=== PATIENT | female | born 1960 | race Caucasian/White ===

== ENCOUNTER 2022-04-10 15:12 | Emergency (ER) | payer SELFPAY ==
[2022-04-10 15:13] VITALS: BP 136/99; PULSE 91; RESP 16; TEMP 35.9; O2SAT 97; BMI 20.7
--- NOTE | 2022-04-10 15:59 | VDLE_ITS ---
Reason For Study: pain RIGHT GSV is normal. CFV is compressible, spontaneous, phasic, competent and demonstrates normal augmentation. FV is compressible, spontaneous, phasic, competent and demonstrates normal augmentation. POP V is compressible, spontaneous, phasic, competent and demonstrates normal augmentation. T/P Trunk is compressible. PTV is compressible. RT PerV is compressible. Procedure This is a venous duplex using B-mode, color flow and spectral Doppler. Exam performed portable in ED. The exam was abbreviated due to the COVID 19 protocol. The exam was diagnostic. A preliminary report was called and/or faxed to Dr. Anderson. VL/Venous Duplex US, Unilateral Interpretation Summary Deep veins of the right lower extremity are patent and compressible segmentally . There is no evidence of right lower extremity deep vein thrombosis. The right great sapheno us vein appears patent and compressible segmentally. Ordering Physician: Mariama Anderson Performed By: Hany Nolan RVT
--- NOTE | 2022-04-10 16:00 | EDS_ITS ---
HPI History of Present Illness Chief Complaint: Lower Extremity Injury Detail of Chief Complaint: Right leg pain and medication refill Informant: patient Onset/Context/Timing Onset: Days (5 days) Context: Sudden Onset Current Severity: Mild Maximum Severity: Moderate Narrative Narrative: Patient presents secondary to right leg pain. On Saturday, 4 days ago, patient states she was out in her yard and stepped in a large hole. She twisted awkwardly and had sudden hip pain. 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 She is able to ambulate. She states earlier today she had a couple brief episodes of sharp chest pain and was concerned about a possible blood clot. Patient also is requesting medication refill for her thyroid and blood pressure medication. She states she went to the [facility] and [place] most recently but does not have a primary care physician to follow-up with and get her refills. [facility] Medical History (Updated 04/10/22 @ 16:[address] Mariama Anderson MD) Hx of gastroesophageal reflux (GERD) Hypertension Hypothyroidism Home Medications albuterol sulfate 90 mcg/actuation aerosol inhaler (ProAir HFA) 2 puff inhalation Q6H PRN PRN Shortness Of Breath 06/04/13 [History Last Taken Unknown] amlodipine 5 mg tablet 5 mg PO DAILY 06/04/13 [History Last Taken Unknown] guaifenesin 600 mg tablet, extended release 12 hr (Mucus Relief ER) 600 mg PO BID 06/04/13 [History Last Taken Unknown] omeprazole 20 mg capsule,delayed release 20 mg PO DAILY 06/04/13 [History Last Taken Unknown] calcitriol 0.25 mcg capsule 0.25 mcg PO DAILY ##20 06/11/13 [Rx Last Taken Unknown] calcium carbonate 200 mg calcium (500 mg) chewable tablet 2,000 mg PO DAILY@0800 ##100 06/11/13 [Rx Last Taken Unknown] ibuprofen 600 mg tablet 600 mg PO Q8H PRN PRN Pain ##30 06/11/13 [Rx Last Taken Unknown] levothyroxine 88 mcg tablet 88 mcg PO DAILY ##90 06/11/13 [Rx Last Taken Unknown] levothyroxine 100 mcg tablet (Synthroid) 100 mcg PO DAILY #30 tabs 04/10/22 [Rx Last Taken Unknown] lisinopril 5 mg tablet 5 mg PO DAILY #30 tabs 04/10/22 [Rx Last Taken Unknown] Allergy/AdvReac Type Severity Reaction Status Date / Time latex Allergy Rash Verified 04/10/22 15:17 acetaminophen [From Percocet] AdvReac Nausea/Vom/ Verified 04/10/22 15:17 Diarrhea hydrocodone bitartrate AdvReac Nausea/Vom/ Verified 04/10/22 15:17 [From Vicodin] Diarrhea methylphenidate HCl AdvReac Rash Verified 04/10/22 15:17 [From Ritalin] oxycodone HCl [From Percocet] AdvReac Nausea/Vom/ Verified 04/10/22 15:17 Diarrhea Surgical History (Updated 04/10/22 @ 16:04 by Slime Gonzalez) History of thyroid surgery Social History Smoking Status: Current every day smoker tobacco type: cigarettes ROS ROS ED Constitutional Constitutional ED: Denies chills or fever(s) Eyes Eyes: Denies change in vision or discharge from eye(s) ENT ENT ED: Denies discharge from eye(s), rhinorrhea or sore throat Cardiovascular Cardiovascular: Reports chest pain; Denies palpitations Respiratory/Chest Respiratory/Chest: Denies cough or dyspnea Gastrointestinal Gastrointestinal: Denies abdominal pain, diarrhea, nausea or vomiting Genitourinary Genitourinary ED: Denies dysuria Musculoskeletal Musculoskeletal: Reports back pain and extremity pain Integumentary Denies Abrasions or rash Neurologic Neurologic: Denies headache(s) or weakness Psychiatric Psychiatric: Denies anxiety or depression Allergic/Immunologic Allergic/Immunologic ED: Denies lip swelling or urticaria EXAM Physical Exam Const Vital Signs: 04/10/22 15:13 Temperature 96.7 F L Temperature Source Temporal Pulse Rate 91 Respiratory Rate 16 Blood Pressure 136/99 H Blood Pressure Mean 111 Pulse Ox 97 Oxygen Delivery Method Room Air Positive well nourished and well developed General Appearance ED: well developed HEENT Reports normocephalic and head/scalp atraumatic Eyes PERRL and EOMs intact bilaterally Neck supple Chest Wall inspection of chest normal and palpation of chest normal Resp normal respiratory effort and clear to auscultation bilaterally Cardio regular rate and regular rhythm GI normal to inspection, nondistended, normoactive bowel sounds Palpation: soft Extremity Extremity Narrative: Superficial scabbed wound over the anterior right anderson. No surrounding erythema. No calf tenderness or edema. Strong distal pulses. Full range of motion at all joints. Neuro oriented x3 and no sensory deficits noted Sensorium / Orientation: alert Motor Exam: strength 5/5 throughout Psych mental status grossly normal MDM MDM MDM Narrative Medical decision making narrative: X-rays of the pelvis, right femur, right tib-fib are ordered. Venous ultrasound of the right leg obtained. Treatment and Re-Evaluation Narrative: Venous ultrasound of the right lower extremity reveals no evidence of DVT. Patient is refusing her x-rays stating that she knows nothing is broken. She will be given prescription for levothyroxine and lisinopril. She is referred to Dr. Altamirano, next doc on no doc list for follow-up. Discharge Plan Triage Chief Complaint: Lower Extremity Injury ED Provider: Mariama Anderson Dx/Rx/DC Orders Clinical Impression: Contusion of leg, right, Medication refill Instructions: ED Contusion, Lower Extremity Prescriptions: New lisinopril 5 mg tablet 5 mg PO DAILY Qty: 30 0RF levothyroxine [Synthroid] 100 mcg tablet 100 mcg PO DAILY Qty: 30 0RF No Action amlodipine 5 MG tablet 5 mg PO DAILY Label Comments: high blood pressure omeprazole 20 MG capsule 20 mg PO DAILY Label Comments: acid reflex albuterol sulfate [ProAir HFA] 1 PUFF inhaler 2 puff inhalation Q6H PRN PRN (Reason: Shortness Of Breath) Label Comments: lungs guaifenesin [Mucus Relief ER] 600 MG tablet 600 mg PO BID Label Comments: breaks up the mucous in your chest ibuprofen 600 MG tablet 600 mg PO Q8H PRN PRN (Reason: Pain) Qty: 30 0RF Label Comments: decreases inflammation, helps with pain calcium carbonate 500 MG tablet 2,000 mg PO DAILY@0800 Qty: 100 0RF Label Comments: calcium supplement calcitriol 0.25 MCG capsule 0.25 mcg PO DAILY Qty: 20 0RF Label Comments: supplement levothyroxine 88 MCG tablet 88 mcg PO DAILY Qty: 90 1RF Label Comments: thyroid medication Primary Care Provider: NOT,DEFINED Referrals: Amie Altamirano MD [Med Staff - [employer]] - As soon as possible NOT,DEFINED [Primary Care Provider] - Disposition Disposition: Home, Self Care
== END 2022-04-10 17:05 | disposition home or self-care (01) ==
LOC: ED 16:58
PROVIDERS: Emergency Provider Emergency Medicine; Visit Provider Emergency Medicine
DX: S80.11XA Contusion of right lower leg, initial encounter (principal); Z76.0 Encounter for issue of repeat prescription; I10 Essential (primary) hypertension; F17.210 Nicotine dependence, cigarettes, uncomplicated; E03.9 Hypothyroidism, unspecified; X50.1XXA Overexertion from prolonged static or awkward postures, initial encounter; M79.604 Pain in right leg
CPT/HCPCS: 93971; 99282